=== PATIENT | female | born 1975 | race Caucasian/White ===

== ENCOUNTER 2018-01-24 13:04 | Inpatient (IN) | payer MEDICARE, MEDICAID | END 2018-02-25 14:00 | LOC: CICU 2S 01-26 16:17 → ER 13:04 → PCU 3S 01-25 08:14 → ED HOLD 17:53 | PROC: 5A1955Z Respiratory Ventilation, Greater than 96 Consecutive Hours (ICD-10-PCS; principal; 2018-02-09 09:50) | PROC: 0BH17EZ Insertion of Endotracheal Airway into Trachea, Via Natural or Artificial Opening (ICD-10-PCS; 2018-02-09 09:50) | PROC: 0B110F4 Bypass Trachea to Cutaneous with Tracheostomy Device, Open Approach (ICD-10-PCS; 2018-02-09 09:50) | DX: A41.9 Sepsis, unspecified organism (principal); J18.9 Pneumonia, unspecified organism; S72.92XA Unspecified fracture of left femur, initial encounter for closed fracture; J96.00 Acute respiratory failure, unspecified whether with hypoxia or hypercapnia; G82.20 Paraplegia, unspecified; N17.9 Acute kidney failure, unspecified; R65.20 Severe sepsis without septic shock; I50.9 Heart failure, unspecified; N31.9 Neuromuscular dysfunction of bladder, unspecified ==